=== PATIENT | male | born 1950 | race Caucasian/White ===

== ENCOUNTER 2017-11-27 06:50 | Day surgery (SDC) | payer MEDICARE ==
[2017-11-26 09:21] LABS: BASOPHILS 0.3 % (0-2); EOSINOPHILS 1.1 % (0-7); HEMATOCRIT 46.2 % (42.0-54.0); HEMOGLOBIN 15.9 g/dL (13.5-17.5); IMMATURE GRANULOCYTES 0.1 % (0-5); LYMPHOCYTES 29.8 % (15-50); MCH 31.6 pg (26.0-34.0); MCHC 34.4 g/dL (31.0-37.0); MCV 91.8 fL (80.0-100.0); MEAN PLATELET VOLUME 9.2 fL (7.4-10.4); NEUTROPHILS 61.7 % (40-80); PLATELET COUNT 239 10x3/uL (130-400); RBC 5.03 10x6/uL (4.20-6.10); RDW 12.8 % (11.5-14.5); WBC 7.2 10x3/uL (4.8-10.8)
[2017-11-26 09:31] LABS: APTT 25.5 SECONDS (22.8-39.4); CALC OSMOLALITY 289 mosm/kg (275-300); CALCIUM 9.2 mg/dL (8.5-10.1); CARBON DIOXIDE 31.1 mmol/L (21.0-32.0); CHLORIDE - SERUM 105 mmol/L (98-107); GLUCOSE 115 mg/dL (74-106); INR 0.95 (0.85-1.17); POTASSIUM - SERUM 4.5 mmol/L (3.5-5.1); PROTIME 12.3 SECONDS (11.6-15.0); SODIUM 143 mmol/L (136-145); UREA NITROGEN 25 mg/dL (7-18); eGFR NON AFRICAN AMERICAN 80 mL/min (90-120)
[~2017-11-27] VITALS: Ht 172.7 cm; Wt 76.2 kg
--- NOTE | ~2017-11-27 | OP ---
PATIENT NAME: PRAVIN TANNER MEDICAL RECORD: [id number] :54 LOCATION:D.OPS ADMISSION DATE: SURGEON: CATARINO MAGAÑA MD DATE OF OPERATION: 11/27/2017 The patient is referred. PRIMARY CARE PHYSICIAN: Dr. Leon PREOPERATIVE DIAGNOSES: History of adenomatous colon polyps with last colonoscopy greater than 5 years ago and rectal bleeding and [id number]. SURGEON: Catarino Magaña MD ANESTHESIA: General endotracheal per POSTDOCTORAL RESEARCH FELLOW and Dr. Saez. PREOPERATIVE NOTE: Mr. Tanner is a very nice 67-year-old white male patient who has had previous benign colon polyps removed at colonoscopy by Dr. Sanchez, the last time being about 5 years ago and he knows that it is time for him to have colonoscopy again. He; however, cannot get in to see Dr. Sanchez or have his colonoscopy promptly. He has recently had some anal pain with intermittent rectal bleeding or bloody discharge and he came to my office thinking that he had "hemorrhoids." On physical examination he has an opening in the midline about 2 to 3 cm from the anal verge, which had a slight amount of bloody drainage when I examined him and was consistent with [id number]. There was no evidence of any other perianal inflammation. There was no abscess or swelling and there was no hemorrhoidal thrombosis and no external tags. He has asked if I will do his colonoscopy and he has been prepped and I planned to do a colonoscopy today at least a flexible proctosigmoidoscopy while he is under anesthesia in prone jackknife position for his fistulotomy. PROCEDURE IN DETAIL: With the patient under anesthesia and in prone jackknife position, he was prepared for colonoscopy. I inserted the Olympus colonoscope and advanced it without difficulty to the cecum. His prep was acceptable though there was residual green fluid and certainly during this procedure, small mucosal lesions could well have been missed. I photographed the cecum for documentation. I found 3 small polyps, a cm or less in diameter, perhaps half a centimeter, in the ascending colon and hepatic flexure. These were biopsied and destroyed with hot biopsy forceps technique. The scope was then slowly withdrawn. In the rectum, it was retroflexed and the anal canal visualized from above and no pathology found. The scope was then completely withdrawn. Then for the anal fistulotomy, I inserted an anoscope and noted an area of apparent inflamed mucosa in the posterior midline. I flushed the fistula tract with a mixture of methylene blue and hydrogen peroxide and then was able to pass a probe through that fistula fairly easily and out through the internal opening. I then incised the skin and mucous membrane up at the anal verge to open the fistulous tract and opened this down to the external sphincter. I found that this really was an intersphincteric fistulous tract between the internal and external sphincters and I did not divide the sphincter today, but instead curetted the tract and then placed a Seton, a 0 silk ligature. The rest of the anus and anal canal on examination was normal. I did not note any nodularity or abnormality of the prostate. The wound was infiltrated with 0.25% Marcaine with epinephrine and then a modest OPERATIVE REPORT [id number] PERET,PRAVIN amount of Nupercainal ointment was applied. A piece of Surgicel was rolled up into a cylinder and then saturated with Marcaine with epinephrine and placed in the anal canal through the anoscope and the anoscope then removed. The external anal area was dressed with simply laid on fluffed 4 x 4 sponges. The patient then was awakened and returned to the recovery room in stable condition. There was really no blood loss during the procedure today. All sponges, instruments and needles were accounted for. No drain was used and the surgical specimen submitted were the 3 polyp biopsies or 3 polyps from the right colon and hepatic flexure. The patient will begin hot Sitz baths tomorrow. He was given several prescriptions for pain medication, stool softener, laxative, and topical anesthetic agents. He will resume activities only as tolerated and is to immediately resume regular diet and drink plenty of water. TRANSINT:[id number] Voice Confirmation ID: [id number] DOCUMENT ID: [id number] CATARINO MAGAÑA MD CC: [id number] DICTATION DATE: 11/27/17 1730 EMERGENCY REGISTRAR: 11/28/17131 [facility] 11/27/17 [id number] [place] [address]
[~2017-11-27 06:50] MED LIST: NEXIUM20 MG PO
[2017-11-27 09:14] VITALS: BP 148/91; Ht 172.7 cm; Wt 76.2 kg
[2017-11-27] MEDS ORDERED: HYDROCODON-ACE1 EAC7 PO (14:24)
== END 2017-11-27 17:00 | disposition home or self-care (01) ==
LOC: D.OPS 06:50 → D.PAN 08:00 → D.OPS 10:00
PROVIDERS: Surgery
DX: K60.4 Rectal fistula (principal); D12.2 Benign neoplasm of ascending colon; D12.3 Benign neoplasm of transverse colon; Z01.812 Encounter for preprocedural laboratory examination

== ENCOUNTER 2018-01-04 06:08 | Day surgery (SDC) | payer MEDICARE ==
[~2018-01-04] VITALS: Ht 172.7 cm; Wt 80.7 kg
--- NOTE | ~2018-01-04 | OP ---
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 OPERATION PERFORMED: Posterior midline anal fistulotomy and removal of a Seton. SURGEON: Catarino Magaña MD ANESTHESIA: General endotracheal per LENS CLEANER. PREOPERATIVE NOTE: Mr. Tavera is a 67-year-old white male of remaining the stent, who has a chronic symptomatic posterior midline anal fissure. I have operated on him several weeks ago and found a posterior midline intersphincteric fistula, which I curetted and in which I placed a heavy silk suture as a Seton and the patient is now several weeks later returned to the operating room with plans to perform a fistulotomy and remove the Seton. He has I believe adequate fibrosis now to permit the operation with little risk of excessive anal sphincter and relaxation. DESCRIPTION OF PROCEDURE: Under general endotracheal anesthetic, the patient was placed in prone jackknife position. The anus was examined and no new findings seen. An anoscope was inserted and the Seton was noted to be intact and I placed a metal probe in the fistulous tract and then cut down on it sharply and was able to remove the Seton intact and felt quite comfortable that we totally opened and unroofed the fistula. This was treated with some shallow curettement and hemostasis was adequate after injection with a 50:50 mix of lidocaine 1% with epinephrine and Marcaine 0.25% without epinephrine. I left a Gelfoam pack saturated in the same topical anesthetic and epinephrine solution and applied benzocaine ointment to the external anal area and dry fluffed 4 x 4 gauze dressings over that. The patient was awakened and taken to recovery room in stable condition. Blood loss during the operation was trivial and unreplaced. All sponges, instruments, and needles were accounted for. No drain was used. I planned for the patient to go home today and at home, he will continue his regime of frequent hot baths and showers. He was given an additional prescriptions. I will continue him on Flagyl 500 mg b.i.d. for 1 month and also Surfak 1 p.o. b.i.d. to keep stool soft in addition to recommending a high fiber diet. I am giving him a stronger analgesic than I had previously. He was given [place] 10/325, #30 one p.o. q.4 hours p.r.n. pain and also to help treat anal sphincter spasm and the accompanying anxiety. He was given a prescription for Ativan 0.5 mg 30 of these one p.o. 3 times or 4 times a day as needed for anal pain, sleep, and anxiety. He is also given a prescription for 5% lidocaine ointment and pramoxine-hydrocortisone ointment also. I will be seeing him back in my office next week. Blood loss was about 5 cc and unreplaced. All sponges, instruments, and needles accounted for. No new surgical specimens submitted today. OPERATIVE REPORT [id number] PRAVIN TAVERA TRANSINT:[id number] Voice Confirmation ID: [id number] DOCUMENT ID: [id number] CATARINO MAGAÑA MD at 1546 CC: [id number] DICTATION DATE: 01/04/1844 MAILING SPECIALIST: 01/04/18 1025 [facility] 01/04/18 [facility] [address] [place] [address]
[~2018-01-04 06:08] MED LIST changes: +HYDROCODON-ACE1 EAC7 PO
[2018-01-04 06:42] LABS: BASOPHILS 0.3 % (0-2); EOSINOPHILS 0.9 % (0-7); HEMATOCRIT 44.1 % (42.0-54.0); HEMOGLOBIN 15.2 g/dL (13.5-17.5); IMMATURE GRANULOCYTES 0.2 % (0-5); LYMPHOCYTES 27.4 % (15-50); MCH 31.1 pg (26.0-34.0); MCHC 34.5 g/dL (31.0-37.0); MCV 90.2 fL (80.0-100.0); MEAN PLATELET VOLUME 9.4 fL (7.4-10.4); MONOCYTES 9.4 % (2-11); NEUTROPHILS 61.8 % (40-80); PLATELET COUNT 227 10x3/uL (130-400); RBC 4.89 10x6/uL (4.20-6.10); RDW 12.8 % (11.5-14.5); WBC 6.5 10x3/uL (4.8-10.8)
[2018-01-04 06:52] LABS: APTT 27.2 SECONDS (22.8-39.4); INR 0.97 (0.85-1.17); PROTIME 12.5 SECONDS (11.6-15.0)
[2018-01-04 07:06] LABS: CALC OSMOLALITY 282 mosm/kg (275-300); CALCIUM 8.7 mg/dL (8.5-10.1); CARBON DIOXIDE 25.6 mmol/L (21.0-32.0); CHLORIDE - SERUM 105 mmol/L (98-107); CREATININE - SERUM 0.8 mg/dL (0.6-1.3); GLUCOSE 113 mg/dL (74-106); POTASSIUM - SERUM 3.8 mmol/L (3.5-5.1); SODIUM 141 mmol/L (136-145); UREA NITROGEN 14 mg/dL (7-18); eGFR NON AFRICAN AMERICAN > 90 mL/min (90-120)
[2018-01-04 07:15] VITALS: BP 135/69; Ht 172.7 cm; Wt 80.7 kg
[2018-01-04] MEDS ORDERED: HYDROCODONE-APA1 TAB PO (09:33)
[2018-01-04] MEDS ORDERED: ATIVAN0.5 MG PO (09:33)
== END 2018-01-04 10:55 | disposition home or self-care (01) ==
LOC: D.OPS 06:08
PROVIDERS: Surgery
DX: K60.3 Anal fistula (principal); K62.5 Hemorrhage of anus and rectum; K21.9 Gastro-esophageal reflux disease without esophagitis; Z01.812 Encounter for preprocedural laboratory examination